=== PATIENT | female | born 1950 | race Caucasian/White ===

== ENCOUNTER 2017-07-24 06:59 | Day surgery (SDC) | payer MEDICARE ==
[~2017-07-24] VITALS: Ht 170.2 cm; Wt 77.2 kg
[~2017-07-24 06:59] MED LIST: RANI150T7 PO; SODIUM CHLORIDE 0.9% 1000ML 1,000 ML IV ONE
[2017-07-24 07:10] VITALS: BP 139/71
[2017-07-24 08:35] VITALS: BP 103/55
[2017-07-24] MEDS ORDERED: LIDOCAINE HCL 1% 20 ML VIAL ONE (08:35)
[2017-07-24] MEDS ORDERED: PROPOFOL 1000 MG/100 ML 100 ML IV ONE (08:37)
== END 2017-07-24 09:20 | disposition home or self-care (01) ==
LOC: DAH 06:59
PROVIDERS: ATTEND Internal Medicine Gastroenterology
DX: K21.0 Gastro-esophageal reflux disease with esophagitis (principal); Z98.84 Bariatric surgery status; Z80.0 Family history of malignant neoplasm of digestive organs; G43.909 Migraine, unspecified, not intractable, without status migrainosus; Z79.899 Other long term (current) drug therapy; Z98.890 Other specified postprocedural states
CPT/HCPCS: 43235; A4606; J2704; J7030

== ENCOUNTER → 2019-09-03 | Outpatient (CLI) | payer OTHER | END | disposition home or self-care (01) | LOC: RAH 08:59 | PROVIDERS: ATTEND Internal Medicine Cardiovascular Disease | DX: Z13.6 Encounter for screening for cardiovascular disorders (principal) | CPT/HCPCS: 75571 ==